=== PATIENT | male | born 1990 | race Caucasian/White ===

== ENCOUNTER 2020-10-14 17:32 | Emergency (ER) | payer MEDICAID ==
[2020-10-14] MEDS ORDERED: Promethazine 25 MG/ML SDV IM ONE (17:58)
[2020-10-14] MEDS ORDERED: HYDROmorphone 1 MG/ML Syringe IM ONE (17:58)
--- NOTE | 2020-10-14 18:03 | EDM.PDOC ---
ED HPI GENERAL MEDICAL PROBLEM - General Chief Complaint: ENT Problem Stated Complaint: EXTREME TOOTH PAIN Time Seen by Provider: 10/14/20 17:50 Source of Information: Reports: Patient History Limitations: Reports: No Limitations - History of Present Illness INITIAL COMMENTS - FREE TEXT/NARRATIVE: 30-year-old male presents to the ED writhing in pain from a left lower second molar tooth. It appears that there is a severe dental caries that is eroded into the pulp space and exposed the nerve. He just finished a course of amoxicillin with no relief. He was seen at the walk-in clinic and they prescribed tramadol tablets which are not helping at all with the pain. He is tries cloves and also medication from [employer] that you placed over top of the tooth to try and cover the nerve but he stated it made the pain much worse. He is nauseated and has been throwing up since he has been sipping on so much water to try and get some relief of the pain. He states he is not slept for the last 2-1/2 days. He has an appointment with [facility] tomorrow potentially to have the tooth extracted. Onset: Gradual Onset Date: 10/12/20 Duration: Day(s):, Getting Worse Location: Reports: Face Quality: Reports: Ache (Dental pain left lower more tooth.), Throbbing, Other Severity: Severe Improves with: Reports: None (Setting 10 out of 10) Worsens with: Reports: Other Context: Denies: Activity, Exercise, Lifting, Sick Contact, Trauma Associated Symptoms: Reports: No Other Symptoms, Malaise, Other (Insomnia due to dental pain). 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 Tramadol as well) Left Lower Tooth/Teeth Pain Score (Numeric/FACES): 10 - Related Data Allergies Allergy/AdvReac Type Severity Reaction Status Date / Time shellfish derived Allergy Hives Verified 10/14/20 17:52 Home Meds: Home Meds oxyCODONE HCl/Acetaminophen [Percocet 5-325 mg Tablet] 1 - 2 each PO Q4H PRN #12 tablet 10/14/20 [Rx] Past Medical History HEENT History: Reports: Other (See Below) - Past Surgical History GI Surgical History: Reports: Hernia, Inguinal Other GI Surgeries/Procedures: repairaat age 16 Social & Family History - Tobacco Use Tobacco Use Status *Q: Never Tobacco User - Caffeine Use Caffeine Use: Reports: Coffee - Recreational Drug Use Recreational Drug Use: No ED ROS ENT - Review of Systems Review Of Systems: See Below Constitutional: Reports: Malaise, Fatigue, Decreased Appetite (Loss of sleep.). Denies: Fever, Chills HEENT: Reports: Dental Pain (Dental pain coming from left lower molars) Respiratory: Reports: No Symptoms (.) Cardiovascular: Reports: No Symptoms Endocrine: Reports: No Symptoms GI/Abdominal: Reports: No Symptoms : Reports: No Symptoms Musculoskeletal: Reports: Hand Pain Skin: Reports: No Symptoms Neurological: Reports: No Symptoms Psychiatric: Reports: No Symptoms Hematologic/Lymphatic: Reports: No Symptoms Immunologic: Reports: No Symptoms ED EXAM, ENT - Physical Exam Exam: See Below Exam Limited By: No Limitations General Appearance: Alert, WD/WN, Severe Distress, Other (Writhing back and forth in the bed due to the pain. Temperature is 37.1 degrees. Heart rate 81 and sinus respiratory is 28 with O2 sats of 100% room air a mildly hyperventilating. BP elevated 141 100.) Eye Exam: Bilateral Eye: Normal Inspection, PERRL Mouth/Throat: Dental Pain (To pain coming from a left lower second molar tooth that has a large dental carry within it. It appears to expose the pulp space and the nerve. There is mild surrounding inflammation of the gingiva around the tooth.) Head: Atraumatic, Normocephalic Neck: Normal Inspection, Supple, Non-Tender, Full Range of Motion. No: Lymphadenopathy (L), Lymphadenopathy (R) Respiratory/Chest: Lungs Clear, Normal Breath Sounds, No Accessory Muscle Use, Respiratory Distress Cardiovascular: Normal Peripheral Pulses, Regular Rate, Rhythm, No Edema, No Gallop, No Murmur, No Rub Course - Vital Signs Last Recorded V/S: Last Vital Signs Temp 37.1 C 10/14/20 17:57 Pulse 81 10/14/20 17:57 Resp 28 H 10/14/20 17:57 BP 141/100 H 10/14/20 17:57 Pulse Ox 100 10/14/20 17:57 - Orders/Labs/Meds Meds: Medications Discontinued Medications Generic Name Dose Route Start Last Admin Trade Name Freq PRN Reason Stop Dose Admin Hydromorphone HCl 1 mg 10/14/20 17:58 10/14/20 18:32 Hydromorphone 1 Mg/Ml Syringe IM 10/14/20 17:59 1 mg ONETIME ONE Administration Promethazine HCl 25 mg 10/14/20 17:58 10/14/20 18:33 Promethazine 25 Mg/Ml Sdv IM 10/14/20 17:59 25 mg ONETIME ONE Administration - Radiology Interpretation Free Text/Narrative:: 30-year-old male presents to the ED with severe dental pain coming from left lower molar tooth I believe second molar with a large dental carry with it likely exposing the pulp and the nerve root. Plan I am Dilaudid 1 mg with Phenergan 25 mg IM to hopefully provide him with some pain relief and ability to get some sleep. Prescription written for Percocet tabs 5/325 mg strength 1 or 2 every 4-6 hours needed for pain relief x12 tablets. Appointment to see dentist tomorrow Departure - Departure Time of Disposition: 17:59 Disposition: Home, Self-Care 01 Condition: Fair Clinical Impression: Pain due to dental caries - Discharge Information *PRESCRIPTION DRUG MONITORING PROGRAM REVIEWED*: Not Applicable *COPY OF PRESCRIPTION DRUG MONITORING REPORT IN PATIENT EDWIN: Not Applicable Prescriptions: oxyCODONE HCl/Acetaminophen [Percocet 5-325 mg Tablet] 1 - 2 each PO Q4H PRN #12 tablet PRN Reason: pain relief. Referrals: PCP,None [Primary Care Provider] - Forms: ED Department Discharge Additional Instructions: Evaluation emergency room today in regards to severe dental pain coming from a left lower molar tooth that has a large dental carry within it likely exposing the pulp space and the nerve. Pain is exquisite. You were treated with intramuscular injection of pain medication Dilaudid and Phenergan to provide some relief of the pain and hopefully some sleep. May use Percocet tablets 5/325 mg strength 1 or 2 every 4-6 hours as necessary for pain relief until the tooth can be removed by dentist tomorrow. Do not use tramadol tablets with the above pain medications. Sepsis Event Note (ED) - Focused Exam Vital Signs: Vital Signs Temp Pulse Resp BP Pulse Ox 10/14/20 17:57 37.1 C 81 28 H 141/100 H 100
== END 2020-10-14 18:48 | disposition home or self-care (01) ==
LOC: JD.ED 17:32
DX: K02.9 Dental caries, unspecified (principal); Z91.013 Allergy to seafood
CPT/HCPCS: 96372; 99282; J1170; J2550; 99283

== ENCOUNTER 2022-07-01 23:55 | Emergency (ER) | payer MEDICAID ==
[2022-07-02] MEDS ORDERED: Morphine 4 MG/ML Syringe IVPUSH ONE (00:47)
[2022-07-02] MEDS ORDERED: Lactated Ringers 1,000 ML IV ONE ×2 (00:47→02:31)
[2022-07-02] MEDS ORDERED: Ondansetron 4 MG/2 ML SDV IVPUSH ONE (00:47)
[2022-07-02] MEDS ORDERED: Iopamidol 612 MG/ML 100 ML Bottle IVPUSH ONE (00:52)
[2022-07-02] MEDS ORDERED: Sodium Chloride 0.9% 10 ML Syringe FLUSH ONE (00:52)
[2022-07-02] MEDS ORDERED: Ketorolac 30 MG/ML SDV IVPUSH ONE ×2 (02:30→04:00)
[2022-07-02] MEDS ORDERED: Acetaminophen/HYDROcodone 325-5 MG Tab PO ONE (04:00)
== END 2022-07-02 04:36 | disposition home or self-care (01) ==
LOC: JD.ED 23:55
DX: N13.9 Obstructive and reflux uropathy, unspecified (principal); F17.210 Nicotine dependence, cigarettes, uncomplicated; Z91.013 Allergy to seafood
CPT/HCPCS: 36415; 74177; 80053; 81001; 83605; 83690; 85025; 96361; 96374; 96375; 96376; 99284; A9270; J1885; J2270; J2405; J3490; J7120; Q9967